=== PATIENT | male | born 1990 | race Caucasian/White ===

== ENCOUNTER 2017-02-17 21:43 | Emergency (ER) | payer OTHER ==
[~2017-02-17] VITALS: Ht 177.8 cm; Wt 72.7 kg
[2017-02-17 22:00] VITALS: BP 132/74; PULSE 84; RESP 16; O2SAT 98
--- NOTE | 2017-02-17 23:33 | ED.REPORT ---
HPI-General Illness Date of Service Feb 17, 2017 ED Provider: Hussain Khan MD Pt is a 26 y.o. male with a hx of polysubstance abuse who presents to the ED c/ o withdrawal from methadone. Pt reports associated nausea, shaking described as "jitters", and insomnia. He reports that his last methadone use was 2 days ago and he is attempting to get into a treatment facility. He denies a hx of Suboxone use. Nursing Notes Stated Complaint: DETOX Chief Complaint: Substance Abuse Nursing Notes Reviewed: Yes Allergies: Coded Allergies: No Known Allergies (Unverified , 02/17/17) Scheduled Loperamide (Loperamide) 2 Mg Capsule 2 MG PO Q4H Scheduled PRN Clonidine (Clonidine) 0.2 Mg Tablet 0.2 MG PO TID PRN PRN Withdrawal Symptoms Ibuprofen (Ibuprofen) 600 Mg Tablet 600 MG PO QID PRN PRN For Pain Lorazepam (Lorazepam) 1 Mg Tablet 1 MG PO HS PRN PRN For Insomnia Ondansetron ODT (Ondansetron ODT) 8 Mg Tab.rapdis 8 MG PO QID PRN PRN For Nausea General Time Seen by MD: 23:33 Chief Complaint Other (Withdrawal, Methadone) Hx Obtained From: Patient Arrived By: Walk-in Sudden in Onset?: Yes Onset Occurred: 2 days ago Symptom Duration: Since onset Severity: Current: No pain currently Severity: Maximum: No pain Past Medical History Past Medical History Polysubstance abuse Social History Drug Use: Meth, Other Ambulatory Status Independent Review of Systems Full Review of Systems GI: Reports: Nausea, Denies: Vomiting Neurologic: Reports: Shaking ("jitters") Psychiatric: Reports: Insomnia Complete sys rev & neg: except as marked. Physical Exam Vital Signs Vital Signs Date Time Temp Pulse Resp B/P Pulse Ox O2 Delivery O2 Flow Rate FiO2 02/17/17 22:00 36.7 84 16 132/74 98 Room Air Initial VS: Reviewed Abdomen / GI: No distention Extremities: Vascular intact, Neuro intact Skin: Warm, Dry, No cyanosis Neurologic: Alert, Oriented, Nonfocal Psychiatric: Mood/affect normal, Behavior normal, Normal thought content General/Constitutional: Awake, Alert, No acute distress, Well appearing, Well developed, Well hydrated, Well nourished, Not toxic appearing Mildly tremulous Head / Eyes: Atraumatic, Normocephalic, PERRL Respiratory / Chest: Atraumatic, Breath sounds NL, Breath sounds = bilat, No respiratory distress Cardiovascular: Heart rate NL, Regular rhythm, Heart sounds NL, Cap refill not delayed, Peripheral circulation NL Re-Eval/Medical Decision Med Decision/Clinical Course 18-year-old presents with withdrawal symptoms after chronic methadone use, discontinued three days ago. He is interested in getting into Suboxone clinic and materials were provided. We can support his withdrawal symptoms with clonidine and loperamide Ativan Zofran and ibuprofen. Discharged with prescriptions for all the above. [facility] information given. Source of Hx: Old records Time of Eval: 23:45 Re-Evaluation/Progress Note: Discussed with pt plan to discharge with Clonidine pre-pack for withdrawal sx and referral to [facility]. Pt understands and agrees with plan. Counseled Regarding: Diagnosis, Lab results, Need for follow-up, When/why to return to ED Discharge & Departure Primary Impression: Substance abuse Additional Impression: Methadone withdrawal Disposition: Home Discharge Condition All VS Reviewed: Yes Condition: Improved Additional Instructions: Begin clonidine up to three times daily as needed for anxiety, tremor, gooseflesh. Begin Ativan at night to sleep. Loperamide up to every two hours if needed for diarrhea and cramps Zofran every four hours if needed for nausea Follow-up with [facility]--call tomorrow for their earliest appointment. Good luck in your recovery. Referrals: OTHER,PHYSICIAN (PCP) [facility] Scribe Attestation Portions of this note were transcribed by Rivas Ochoa. I, Dr. Khan personally performed the history, physical exam and medical decision-making; I reviewed and confirmed the accuracy of the information in the transcribed note. Signed by: Richard Maier, 02/18/17 and 0030 copies to: [facility] Hussain Khan MD Feb 17, 2017 23:33 RIVAS OCHOA Feb 17, 2017 23:40
[2017-02-17] MEDS ORDERED: _LORazepam 1 mg Tablet PO PRN (23:45)
[2017-02-17] MEDS ORDERED: Ondansetron 8 mg ODT Tablet PO ONE (23:45)
[2017-02-17] MEDS ORDERED: _Ondansetron ODT 4 mg Tablet PO PRN (23:50)
[2017-02-17] MEDS ORDERED: IBUP-1827 PO (23:54)
[2017-02-17] MEDS ORDERED: CLON0.2T PO (23:54)
[2017-02-17] MEDS ORDERED: LORA1TAB PO (23:54)
[2017-02-17] MEDS ORDERED: ONDA8TAB10 PO (23:54)
[2017-02-17] MEDS ORDERED: LOPE2CAP PO (23:54)
== END 2017-02-18 00:31 | disposition home or self-care (01) ==
LOC: SED 21:43
DX: F11.23 Opioid dependence with withdrawal (principal); F15.10 Other stimulant abuse, uncomplicated